=== PATIENT | female | born 2000 | race African-American/Black ===

== ENCOUNTER 2024-03-08 08:03 | Day surgery (SDC) | payer BC ==
[2024-03-05 16:08] VITALS: BMI 28.7
[2024-03-08 09:19] VITALS: RESP 18; TEMP 97
[2024-03-08 09:43] VITALS: BP 110/64; PULSE 67
== END 2024-03-08 10:05 | disposition home or self-care (01) ==
LOC: FASU-ENDO 08:03
PROVIDERS: ATTEND Internal Medicine Gastroenterology
PROC: 0DB68ZX Excision of Stomach, Via Natural or Artificial Opening Endoscopic, Diagnostic (ICD-10-PCS; 2024-03-08)
PROC: 0DB98ZX Excision of Duodenum, Via Natural or Artificial Opening Endoscopic, Diagnostic (ICD-10-PCS; principal; 2024-03-08 09:08)
DX: K29.50 Unspecified chronic gastritis without bleeding (principal); R10.13 Epigastric pain
CPT/HCPCS: 81025; 88305-TC; 88342-TC